=== PATIENT | female | born 1990 | race African-American/Black ===

== ENCOUNTER 2025-04-07 13:23 | Emergency (ER) | payer BC ==
[~2025-04-07] VITALS: Ht 165.1 cm; Wt 91.0 kg
[2025-04-07 13:29] VITALS: O2SAT 100
[2025-04-07] MEDS ORDERED: IBUP-1455 MT (15:10)
[2025-04-07] MEDS: ACETAMINOPHEN 325MG TABLET PO ONE (15:29)
[2025-04-07 15:38] VITALS: BP 111/52; PULSE 86; RESP 16; TEMP 36.7; O2SAT 100
== END 2025-04-07 15:40 | disposition home or self-care (01) ==
LOC: ER 13:23
DX: T75.4XXA Electrocution, initial encounter (principal); M79.2 Neuralgia and neuritis, unspecified; W86.8XXA Exposure to other electric current, initial encounter; X58.XXXA Exposure to other specified factors, initial encounter; Y93.89 Activity, other specified; Y92.89 Other specified places as the place of occurrence of the external cause; Y99.8 Other external cause status
CPT/HCPCS: 99282

== ENCOUNTER 2025-06-01 22:37 | Emergency (ER) | payer BC, MEDICAID ==
[~2025-06-01] VITALS: Ht 165.1 cm; Wt 98.6 kg
[~2025-06-01 22:37] MED LIST: IBUP-1455 MT
[2025-06-01 23:42] VITALS: O2SAT 99
[2025-06-02] MEDS ORDERED: BACL-141 MT (01:50)
[2025-06-02] MEDS ORDERED: LIDO700A30 TP (01:50)
[2025-06-02 02:34] VITALS: BP 120/77; PULSE 82; RESP 18; TEMP 36.6; O2SAT 99
== END 2025-06-02 02:35 | disposition home or self-care (01) ==
LOC: ER 22:37
DX: M62.830 Muscle spasm of back (principal); Z79.899 Other long term (current) drug therapy
CPT/HCPCS: 99283